=== PATIENT | female | born 1975 | race African-American/Black ===

== ENCOUNTER 2021-04-02 13:48 | Emergency (ER) | payer OTHER ==
[2021-04-02 14:46] LABS: HEMATOCRIT 39.8 % (37.0-47.0); HEMOGLOBIN 12.9 g/dl (12.0-16.0); IMMATURE GRANULOCYTES 0.2 % (0.0-5.0); MEAN CELL VOLUME 90.7 fL CALC (80.0-100.0); MEAN CORPUSCULAR HGB 29.4 pG CALC (26.0-32.0); MEAN CORPUSCULAR HGB CONC 32.4 g/dL CAL (32.0-36.0); NEUT# 1.94 thou/uL (2.00-7.15); RED BLOOD COUNT 4.39 mill/uL (4.20-5.60); RED CELL DISTRI WIDTH 13.5 % (11.5-15.5)
[2021-04-02 14:58] LABS: ALBUMIN 3.8 g/dL (3.2-5.0); ALKALINE PHOSPHATASE 84 u/l (38-126); ANION GAP 12 (6-22 (CALC)); BILIRUBIN, TOTAL 0.5 mg/dL (0.0-1.4); BUN 8 mg/dL (7-17); BUN/CREATININE RATIO 10 (12-20 (CALC)); CARBON DIOXIDE 22 mmol/l (22-30); CHLORIDE 106 mmol/l (95-108); CREATININE 0.8 mg/dL (0.5-1.0); GFR > 60 ML/MIN (>=60 (CALC)); GFR FOR AFR.AMER. > 60 ML/MIN (>=60 (CALC)); POTASSIUM 3.8 mmol/l (3.5-5.1); SGOT/AST 23 u/l (14-36); SODIUM 137 mmol/l (137-146); TOTAL PROTEIN 7.4 g/dL (6.3-8.2)
[2021-04-02] MEDS ORDERED: LISINOPRIL10 MG PO (15:43)
[2021-04-02] MEDS ORDERED: CHOLECALCIFEROL PO (15:44)
[2021-04-02] MEDS ORDERED: IRON325 M1 PO (15:45)
[2021-04-02] MEDS ORDERED: FULL SPECTRUM S1 CAP PO (15:45)
[2021-04-02 18:36] VITALS: BP 176/93
== END 2021-04-02 18:46 | disposition home or self-care (01) | DRG 313 ==
LOC: ED 13:48
PROVIDERS: Family Medicine
DX: R07.89 Other chest pain (principal); F41.9 Anxiety disorder, unspecified; I10 Essential (primary) hypertension; Z20.822 Contact with and (suspected) exposure to COVID-19
CPT/HCPCS: J2060

== ENCOUNTER 2022-12-01 12:51 | Emergency (ER) | payer OTHER ==
[~2022-12-01] VITALS: Ht 162.6 cm; Wt 109.0 kg
[~2022-12-01 12:51] MED LIST: CHOLECALCIFEROL PO; FULL SPECTRUM S1 CAP PO; IRON325 M1 PO; LISINOPRIL10 MG PO
[2022-12-01 13:22] LABS: BASO% 0.4 % (0-3); EOS% 1.9 % (0-8); HEMATOCRIT 38.1 % (37.0-47.0); HEMOGLOBIN 12.2 g/dl (12.0-16.0); IMMATURE GRANULOCYTES 0.1 % (0.0-5.0); MEAN CELL VOLUME 85.8 fL CALC (80.0-100.0); MEAN CORPUSCULAR HGB 27.5 pG CALC (26.0-32.0); MONO% 9.4 % (2-13); NEUT# 4.13 thou/uL (2.00-7.15); NEUT% 49.2 % (42-76); RED BLOOD COUNT 4.44 mill/uL (4.20-5.60); RED CELL DISTRI WIDTH 13.6 % (11.5-15.5)
[2022-12-01 13:30] LABS: PROTHROMBIN TIME 9.7 SECONDS (9.0-12.5)
[2022-12-01 13:53] VITALS: BP 141/88
[2022-12-01 14:01] VITALS: BP 145/90
[2022-12-01 14:19] VITALS: BP 143/85
[2022-12-01 14:21] LABS: ALBUMIN 4.2 g/dL (3.2-5.0); ALKALINE PHOSPHATASE 102 u/l (38-126); ANION GAP 15 (6-22 (CALC)); BILIRUBIN, TOTAL 0.3 mg/dL (0.02-1.3); BUN 15 mg/dL (7-17); BUN/CREATININE RATIO 12 (12-20 (CALC)); CARBON DIOXIDE 23 mmol/l (22-30); CHLORIDE 103 mmol/l (95-108); CREATININE 1.2 mg/dL (0.5-1.0); GFR FOR AFR.AMER. 59 ML/MIN (>=60 (CALC)); GFR OTHER RACES 49 ML/MIN (>=60 (CALC)); POTASSIUM 3.6 mmol/l (3.5-5.1); SGOT/AST 30 u/l (14-36); SODIUM 136 mmol/l (137-146); TOTAL PROTEIN 7.8 g/dL (6.3-8.2)
[2022-12-01 14:31] VITALS: BP 136/87
[2022-12-01] MEDS ORDERED: HYDROCHLOROTH12.5 M1 PO (14:55)
[2022-12-01] MEDS ORDERED: SENNA-TABS8.6 MG PO ×2 (14:56→14:59)
[2022-12-01 15:01] VITALS: BP 135/90
[2022-12-01 15:30] VITALS: BP 135/90
== END 2022-12-01 15:30 | disposition left against medical advice (07) | DRG 69 ==
LOC: ED 12:51
PROVIDERS: Family Medicine
DX: G45.9 Transient cerebral ischemic attack, unspecified (principal); R29.702 NIHSS score 2; I10 Essential (primary) hypertension; M79.7 Fibromyalgia
CPT/HCPCS: Q9967

== ENCOUNTER 2023-10-16 07:44 | Emergency (ER) | payer OTHER ==
[~2023-10-16] VITALS: Ht 162.6 cm; Wt 90.7 kg
[~2023-10-16 07:44] MED LIST changes: +HYDROCHLOROTH12.5 M1 PO; +SENNA-TABS8.6 MG PO
[2023-10-16 08:33] LABS: BASO% 0.3 % (0-3); EOS% 1.1 % (0-8); HEMATOCRIT 34.7 % (37.0-47.0); HEMOGLOBIN 11.5 g/dl (12.0-16.0); IMMATURE GRANULOCYTES 0.1 % (0.0-5.0); LYMPH% 28.1 % (15-41); MEAN CELL VOLUME 84.6 fL CALC (80.0-100.0); MEAN CORPUSCULAR HGB CONC 33.1 g/dL CAL (32.0-36.0); MONO% 8.7 % (2-13); NEUT# 4.35 thou/uL (2.00-7.15); NEUT% 61.7 % (42-76); RED BLOOD COUNT 4.1 mill/uL (4.20-5.60); RED CELL DISTRI WIDTH 13.9 % (11.5-15.5)
[2023-10-16 09:02] LABS: ALBUMIN 3.8 g/dL (3.2-5.0); ALKALINE PHOSPHATASE 95 u/l (38-126); ANION GAP 9 (6-22 (CALC)); BILIRUBIN, TOTAL 0.3 mg/dL (0.02-1.3); BUN 10 mg/dL (7-17); BUN/CREATININE RATIO 10 (12-20 (CALC)); CARBON DIOXIDE 23 mmol/l (22-30); CHLORIDE 110 mmol/l (95-108); GFR FOR AFR.AMER. > 60 ML/MIN (>=60 (CALC)); GFR OTHER RACES 60 ML/MIN (>=60 (CALC)); POTASSIUM 3.5 mmol/l (3.5-5.1); SGOT/AST 24 u/l (14-36); SODIUM 139 mmol/l (137-146); TOTAL PROTEIN 7.4 g/dL (6.3-8.2)
== END 2023-10-16 08:41 | disposition left against medical advice (07) | DRG 102 ==
LOC: ED 07:44 → LWOBS 08:40
PROVIDERS: Family Medicine
DX: R51.9 Headache, unspecified (principal); U07.1 COVID-19; J11.1 Influenza due to unidentified influenza virus with other respiratory manifestations; Z53.21 Procedure and treatment not carried out due to patient leaving prior to being seen by health care provider